=== PATIENT | female | born 1975 | race Caucasian/White ===

== ENCOUNTER 2017-01-04 11:29 | Emergency (ER) | payer OTHER ==
[~2017-01-04] VITALS: Ht 167.6 cm; Wt 93.5 kg
[~2017-01-04 11:29] MED LIST: ALPRAZOLAM0.5 MG PO; ALPRAZOLAM1 MG; Bactrim,Septra DS 80 PO; CIPROFLOXACIN500 M1 PO; DIFLUCAN150 MG PO; FLEXERIL10 MG PO; Flonase BOTH NARES; GEODON60 MG PO; Habitrol,Nicoderm CQ TD; Humibid LA,Mucinex PO; KEFLEX500 MG PO; KLONOPIN1 MG PO; LAMICTAL ODT50 MG PO; NAPROSYN500 MG PO; NAPROXEN250 MG PO; NEURONTIN100 MG PO; OXYCODONE HCL5 MG PO; PREDNISONE20 MG PO; PROMETHAZINE HC25 M1 PO; SEROQUEL200 MG PO; SEROQUEL400 MG PO; SERTRALINE HCL100 MG PO; SERTRALINE HCL25 MG PO; TENEX2 MG PO; TYLENOL WITH C1 EACH PO; ULTRAM50 MG PO; VALIUM5 MG PO; VOLTAREN50 MG PO; XANAX0.5 MG PO; XANAX1 MG PO; ZOFRAN4 MG PO; ZOLOFT100 MG PO; gabapentin; lamictal; seroquel
[2017-01-04 14:03] LABS: HEMATOCRIT 37.4 % (36.0-46.0); MCH 25.9 PG (29.0-34.0); MCHC 31.3 G/DL (30.0-36.0); MCV 82.9 FL (83-99); MEAN PLAT.VOLUME 9.7 uM^3 (9.5-12.4); PLATELET COUNT 358 K/uL (156-360); RBC DIS.WIDTH-CV 14.6 % (11.8-14.6); RBC DIS.WIDTH-SD 44.3 % (39-53); RED BLOOD COUNT 4.51 M/uL (3.80-5.20); WHITE BLOOD COUNT 11.8 K/uL (4.1-10.2)
[2017-01-04 14:11] LABS: CHLORIDE 105 mEq/L (99-109); POTASSIUM 4.4 mEq/L (3.7-5.4); SODIUM 139 mEq/L (136-147)
[2017-01-04 14:12] LABS: D-DIMER ELISA < 150.00 ng/mLDDU (<230)
[2017-01-04 14:13] LABS: GLUCOSE 86 mg/dL (70-99)
[2017-01-04 14:14] LABS: ANION GAP 12 MEQ/L (2-14)
[2017-01-04 14:16] LABS: GFR ESTIMATE (CALCULATED) > 59 mL/min/
[2017-01-04 14:17] LABS: UREA NITROGEN (BUN) 11 mg/dL (9-23)
[2017-01-04 14:26] LABS: QUANTITATIVE HCG < 4.0 MIU/ML
[2017-01-04] MEDS ORDERED: INDOCIN50 MG PO (14:35)
[2017-01-04 14:41] VITALS: BP 138/79
== END 2017-01-04 14:42 | disposition home or self-care (01) ==
LOC: EME 11:29
PROVIDERS: Physician Assistant
DX: R09.1 Pleurisy (principal); F17.200 Nicotine dependence, unspecified, uncomplicated; J45.909 Unspecified asthma, uncomplicated; F32.9 Major depressive disorder, single episode, unspecified; F41.9 Anxiety disorder, unspecified; Z88.0 Allergy status to penicillin
CPT/HCPCS: 71020; 80048; 84702; 85027; 85379; 99281; 99284